=== PATIENT | female | born 1995 | race American Indian/Alaskan Native ===

== ENCOUNTER 2017-10-22 11:13 | Emergency (ER) | payer MEDICAID, OTHER ==
[2017-10-22 11:56] VITALS: RESP 18; TEMP 98.5; O2SAT 100; BMI 33.6
[2017-10-22 12:14] LABS: URINE BILIRUBIN NEGATIVE (NEGATIVE); URINE BLOOD NEGATIVE (NEGATIVE); URINE GLUCOSE (UA) NEGATIVE (NEGATIVE); URINE KETONE NEGATIVE (NEGATIVE); URINE LEUKOCYTE ESTERASE SMALL Leu/uL (NEGATIVE); URINE PROTEIN NEGATIVE mg/dL (<30 mg/dL)
[2017-10-22 12:16] LABS: URINE APPEARANCE CLEAR (CLEAR); URINE COLOR YELLOW (YELLOW)
[2017-10-22 12:20] LABS: URINE BACTERIA FEW (NEG); URINE EPITHELIAL CELLS MANY /hpf (0-5); URINE RBC NEGATIVE /hpf (0-2); URINE WBC 0 - 2 /hpf (0-6)
[2017-10-22] MEDS ORDERED: cefTRIAXone (Rocephin) 250 mg Inj IM STA (12:48)
[2017-10-22 13:02] VITALS: BP 121/57; PULSE 73
--- NOTE | 2017-10-22 13:10 | ED PDOC ---
Arrival/HPI - General Chief Complaint: Female Genitourinary Time Seen by Provider: 10/22/17 11:55 Historian: Patient - History of Present Illness Narrative History of Present Illness (Text): 10/22/17 22 yo female come in for medication evaluation after was exposed to STD. Pt reports, " my boyfriend just told me that he was tested for Gonorrhea and it was positive". Pt also request check, last menstrual period- 2months ago. Otherwise, pt denies fever, chills, headache, dizziness, sore throat, cough , CP, SOB, dyspnea, diaphoresis, abd. pain, V/D, denies UTI sx, vaginal irritation or discharges, vaginal bleeding, back pain. Ambulate to ED for evaluation, not in any apparent distress. Past Medical History - Provider Review Nursing Documentation Reviewed: Yes - Travel History Have you recently traveled outside [place] w/in the past 3 mons?: No - Past History Past History: No Previous - Tetanus Immunization Tetanus Immunization: Unknown - Pulmonary Hx Asthma: Yes - Psychiatric Hx Substance Use: No Family/Social History - Physician Review Nursing Documentation Reviewed: Yes Family/Social History: No Known Family HX Smoking Status: Current Some Days Smoker Hx Alcohol Use: Yes Frequency of alcohol use: Socially Hx Substance Use: No Allergies/Home Meds Allergies/Adverse Reactions: Allergies No Known Allergies Allergy (Verified 10/22/17 11:56) Home Medications: Home Meds Medication Instructions Recorded Confirmed No Known Home Med 10/22/17 10/22/17 Review of Systems - Review of Systems Constitutional: Normal Eyes: Normal ENT: Normal Respiratory: Normal Cardiovascular: Normal Gastrointestinal: absent: Abdominal Pain, Diarrhea, Nausea, Vomiting, Food Intolerance Genitourinary Female: Normal. absent: Dysuria, Frequency, Hematuria Musculoskeletal: Normal Skin: Normal Neurological: Normal Endocrine: Normal Hemo/Lymphatic: Normal Psychiatric: Normal Physical Exam Vital Signs Reviewed: Yes Vital Signs Temp Pulse Resp BP Pulse Ox 10/22/17 13:02 73 18 121/57 L 100 10/22/17 11:55 98.5 F 89 18 117/64 100 Temperature: Afebrile Blood Pressure: Normal Pulse: Regular Respiratory Rate: Normal Appearance: Positive for: Well-Appearing, Non-Toxic, Comfortable Pain Distress: None Mental Status: Positive for: Alert and Oriented X 3 - Systems Exam Head: Present: Normocephalic Conjunctiva: Present: Normal Mouth: Present: Moist Mucous Membranes Pharnyx: No: ERYTHEMA, EXUDATE Neck: Present: Trachea Midline Respiratory/Chest: Present: Clear to Auscultation, Good Air Exchange. No: Respiratory Distress, Accessory Muscle Use Cardiovascular: Present: Regular Rate and Rhythm, Normal S1, S2. No: Murmurs Abdomen: Present: Normal Bowel Sounds. No: Tenderness, Distention, Peritoneal Signs, Rebound, Guarding Back: No: CVA Tenderness Upper Extremity: Present: Normal ROM. No: Deformity Lower Extremity: No: Edema, CALF TENDERNESS Neurological: Present: GCS=15, Speech Normal Skin: Present: Warm, Dry, Normal Color. No: Rashes Psychiatric: Present: Alert, Oriented x 3 Medical Decision Making ED Course and Treatment: 10/22/17 pt resting comfortably in bed, not in any apparent distress. Afebrile, hemodynamicaly stable. Non-toxic. ENT: no acute findings neck: Supple, (-) meningeal sign CVS: (+)S1S2, reg. Lungs: CTA B/L, BS equal B/L. Abd: benign. Neurologicaly intact. UA results review and appears normal. preg (-) beta quant- negative ( performed per pt request) Pt received STD tx pre requested. Pt advised for partner(s) to be tested and tx as well. ref. to f/u with PMD , [facility] KEEPER in 2-3 days for re-eavl. return to ED if any worsening or new change 10/22/17 16:41 - Lab Interpretations Lab Results: Lab Results 10/22/17 13:00: Beta HCG, Quant < 2.39 10/22/17 12:05: Urine Color Yellow, Urine Appearance Clear, Urine pH 6.0, Ur Specific Kiln 1.025, Urine Protein Negative, Urine Glucose (UA) Negative, Urine Ketones Negative, Urine Blood Negative, Urine Nitrate Negative, Urine Bilirubin Negative, Urine Urobilinogen 1.0 H, Ur Leukocyte Esterase Small H, Urine RBC Negative, Urine WBC 0 - 2, Ur Epithelial Cells Many, Urine Bacteria Few, Urine HCG, Qual Negative I have reviewed the lab results: Yes Interpretation: No clinic. lab abnormalty - Medication Orders Current Medication Orders: Discontinued Medications Azithromycin (Zithromax) 1,000 mg PO STAT STA PRN Reason: Protocol Stop: 10/22/17 12:49 Last Admin: 10/22/17 13:40 Dose: 1,000 mg Ceftriaxone Sodium (Rocephin) 250 mg IM STAT STA PRN Reason: Protocol Stop: 10/22/17 12:49 Last Admin: 10/22/17 13:40 Dose: 250 mg IM Administration Charges Document 10/22/17 13:40 HI (Rec: 10/22/17 13:41 HI [id number]) Injection Site MAR Injection Site Right Gluteus Aramis Charges for Administration # of IM Administrations 1 Disposition/Present on Arrival - Present on Arrival Any Indicators Present on Arrival: No History of DVT/PE: No History of Uncontrolled Diabetes: No Urinary Catheter: No History of Decub. Ulcer: No History Surgical Site Infection Following: None - Disposition Have Diagnosis and Disposition been Completed?: Yes Diagnosis: Sexually transmitted disease Disposition: HOME/ ROUTINE Disposition Time: 13:06 Patient Plan: Discharge Condition: STABLE Discharge Instructions (ExitCare): Sexually Transmitted Diseases (ED), Safe Sex (ED) Additional Instructions: CONSIDER SAFE SEX, USE OF SEXUAL PROTECTION ENCOURAGE PARTNER TO BE TESTED AND TREATED FOLLOW UP WITH [facility]ENN[facility] KEEPER IN 2-3 DAYS FOR FURTHER EVALUATION OF MENSTRUAL IRREGULARITY RETURN TO ED IF ANY WORSENING OR NEW CHANGES. Referrals: PCP,NO [Primary Care Provider] - [facility] with [facility] [Outside] - Follow up with primary Forms: [employer] (Indonesian)
== END 2017-10-22 13:58 | disposition home or self-care (01) ==
LOC: ED 11:13
DX: A64 Unspecified sexually transmitted disease (principal)
CPT/HCPCS: 81001; 84702; 84703; 87086; 87491; 87591; 96372; 99283; J0696